=== PATIENT | male | born 2000 | race Caucasian/White ===

== ENCOUNTER 2022-06-19 09:34 | Emergency (ER) | payer OTHER ==
[2022-06-19] MEDS ORDERED: Amoxicillin/Potassium Clav 875 MG TAB ONE (10:15)
[2022-06-19] MEDS ORDERED: Rabies Vaccine Human 2.5 UNITS VIAL ONE ×2 (10:16)
[2022-06-19] MEDS ORDERED: Boostrix 0.5 ML (Tdap) VIAL (>/=7 yrs of age) ONE (10:16)
[2022-06-19] MEDS ORDERED: Bacitracin 1 PK ONE (10:49)
== END 2022-06-19 11:00 | disposition home or self-care (01) ==
LOC: CSHERS 09:34
DX: S41.151A Open bite of right upper arm, initial encounter (principal); W55.01XA Bitten by cat, initial encounter
CPT/HCPCS: 90375; 90471; 90675; 90715